=== PATIENT | female | born 1960 | race Caucasian/White ===

== ENCOUNTER → 2016-10-16 | Outpatient (CLI) | payer BC ==
--- NOTE | 2016-10-16 09:29 | BD ---
EXAMINATION TYPE: MG DEXA axial skeleton. DATE OF EXAM: 10/16/2016 COMPARISON: Previous study dated 02/21/2013. CLINICAL HISTORY: Postmenopausal female Height: 5 FT 2 1/2 IN Weight: 150 FRAX RISK QUESTIONS: Alcohol (3 or more units per day): NO Family History (Parent hip fracture): NO Glucocorticoids (More than 3mos): NO (Ex: prednisone, prednisolone, methylprednisolone, dexamethasone, and hydrocortisone). History of Fracture in Adulthood: YES Secondary Osteoporosis: 1. Type 1 Diabetes: NO 2. Hyperthyroidism: NO 3. Menopause before 45: YES 4. Malnutrition: NO 5. Chronic liver disease: NO Rheumatoid Arthritis: NO Current Tobacco Use: NO RISK FACTORS HISTORY OF: Hip Fracture (Right/Left): RT When: AGE 23 Active: YES Postmenopausal woman: TOTAL HYST AGE 34 Take estrogen and/or progesterone medications: TOOK HRT FOR 15 YEARS MEDICATIONS: Additional Medications: REINALDO GENERIC,VIT D3 ,MOTRIN NEEDED Additional History: WAS NEVER TREATED FOR HIP FX AT TIME OF INJURY. TWENTY YEARS AFTER THE INJURY WAS TOLD SHE FX RT HIP. EXAM MEASUREMENTS: Bone mineral densitometry was performed using the [employer] System. Bone mineral density as measured about the Lumbar spine is: ----- L1-L4(G/cm2): 1.169 T Score Values are as follows: ----- L2: -0.7 ----- L3: -0.1 ----- L4: 0.1 ----- L1-L4: -0.1 Bone mineral density has: Decreased -5.6% since study of: 2012 Bone mineral density about the R hip (g/cm2): 0.753 Bone mineral density about the L hip (g/cm2): 0.718 T Score values are as follows: -----R Neck: -1.2 -----L Neck: -1.5 -----R Total: 0.0 -----L Total: 0.1 Bone mineral density has: Decreased -12.5% since study of: 2012 IMPRESSION: Osteopenia (T Score between -2.5 and -1 as noted by T score values There is slightly increased risk of fracture and the patient may be considered for treatment. Re-Screen 2-5 years. NOTE: T-SCORE=SD OF THE YOUNG ADULT MEAN.
--- NOTE | 2016-10-16 09:41 | XR ---
EXAMINATION TYPE: XR chest 2V DATE OF EXAM: 10/16/2016 HISTORY: Z00.01 physical. REFERENCE: Previous study dated 07/16/2010. FINDINGS: The lungs are clear. Pleural spaces are clear. Heart size is normal. IMPRESSION: NORMAL CHEST.
[2016-10-16 10:12] LABS: CH 28.7; CHCM 32.7; HCT 41.5 % (34.0-46.0); HDW 2.48; HGB 13.5 gm/dL (11.4-16.0); MCH 28.6 pg (25.0-35.0); MCHC 32.5 g/dL (31.0-37.0); Mean Platelet Volume 7.1; RBC 4.72 m/uL (3.80-5.40); RDW 13.1 % (11.5-15.5)
[2016-10-16 10:14] LABS: ALT 35 U/L (9-52); AST 19 U/L (14-36); Alkaline Phosphatase 64 U/L (38-126); Anion Gap 10 mmol/L; Blood Urea Nitrogen 13 mg/dL (7-17); Calcium 9.5 mg/dL (8.4-10.2); Carbon Dioxide 25 mmol/L (22-30); Chloride 107 mmol/L (98-107); Cholesterol 216 mg/dL (<200); Glucose 109 mg/dL (74-99); HDL Cholesterol 50 mg/dL (40-60); Non-African American GFR(MDRD) >60 (>60 ml/min/1.73 sqM); Potassium 4.4 mmol/L (3.5-5.1); Sodium 142 mmol/L (137-145); Total Bilirubin 0.8 mg/dL (0.2-1.3); Total Protein 7.1 g/dL (6.3-8.2); Triglycerides 147 mg/dL (<150); Uric Acid 5.1 mg/dL (3.7-7.4)
[2016-10-16 12:08] LABS: Erythrocyte Sedimentation Rate 8 mm/hr (0-20)
[2016-10-16 12:45] LABS: Hemoglobin A1C 5.8 % (4.2-6.1)
[2016-10-16 13:43] LABS: Rheumatoid Factor, Qnt <9 IU/mL (<12)
[2016-10-16 16:22] LABS: ANA w/Reflex to Titer NEGATIVE (NEGATIVE)
--- NOTE | 2016-10-19 08:50 | MM ---
Reason for exam: screening (asymptomatic). Last mammogram was performed 1 year and 4 months ago. History: Patient is postmenopausal. Family history of breast cancer in sister at age 52. Took estrogen for 13 years beginning at age 34. Physical Findings: A clinical breast exam by your physician is recommended on an annual basis and results should be correlated with mammographic findings. MG Screening Mammo w CAD Bilateral CC and MLO view(s) were taken. Prior study comparison: June 12, 2015, bilateral MG screening mammo w CAD. May 25, 2014, bilateral MG screening mammo w CAD. There are scattered fibroglandular densities. Focal asymmetry seen on upper MLO view, stable. No significant changes when compared with prior studies. ASSESSMENT: Benign, BI-RAD 2 RECOMMENDATION: Routine screening mammogram of both breasts in 1 year.
== END | disposition home or self-care (01) ==
LOC: RADMAMWWP 08:17
PROVIDERS: ATTEND Family Medicine
DX: Z12.31 Encounter for screening mammogram for malignant neoplasm of breast (principal); M81.0 Age-related osteoporosis without current pathological fracture; Z13.820 Encounter for screening for osteoporosis; Z00.01 Encounter for general adult medical examination with abnormal findings; Z00.00 Encounter for general adult medical examination without abnormal findings; M10.9 Gout, unspecified
CPT/HCPCS: 84439; 80061; 80053; 85652; 83036; 84443; 84550; 85027; 86431; 86038; 86225; 71020; 77080; G0202

== ENCOUNTER → 2017-12-13 | Outpatient (CLI) | payer BC ==
[2017-12-13 08:55] LABS: Appearance,Urine Cloudy (Clear); Bilirubin,Urine Negative (Negative); Blood,Urine Negative (Negative); Color,Urine Yellow; Glucose,Urine (UA) Negative (Negative); Hyaline Casts,Urine 3 /lpf (0-2); Ketones,Urine Negative (Negative); Leukocyte Esterase,Urine Negative (Negative); Mucus,Urine Rare /hpf; Nitrite,Urine Negative (Negative); Protein,Urine Negative (Negative); RBC,Urine <1 /hpf (0-5); Specific Gravity,Urine 1.019 (1.001-1.035); Squamous Epithelial Cell,Urine 12 /hpf (0-4); Urobilinogen,Urine <2.0 mg/dL (<2.0); WBC,Urine 2 /hpf (0-5)
[2017-12-13 08:57] LABS: ALT 33 U/L (9-52); AST 20 U/L (14-36); Albumin 4.2 g/dL (3.5-5.0); Alkaline Phosphatase 67 U/L (38-126); Anion Gap 9 mmol/L; Blood Urea Nitrogen 15 mg/dL (7-17); Calcium 10.2 mg/dL (8.4-10.2); Carbon Dioxide 25 mmol/L (22-30); Chloride 107 mmol/L (98-107); Cholesterol 238 mg/dL (<200); Glucose 111 mg/dL (74-99); HDL Cholesterol 47 mg/dL (40-60); LDL Cholesterol,Calculated 159 mg/dL (0-99); Potassium 4.7 mmol/L (3.5-5.1); Sodium 141 mmol/L (137-145); Total Bilirubin 0.6 mg/dL (0.2-1.3); Triglycerides 161 mg/dL (<150)
[2017-12-13 09:11] LABS: Basophils # (A) 0.1 k/uL (0-0.2); Basophils % (A) 1 %; Eosinophils # (A) 0.2 k/uL (0-0.7); Eosinophils % (A) 2 %; HCT 42.2 % (34.0-46.0); HGB 13.9 gm/dL (11.4-16.0); Lymphocytes # (A) 2.7 k/uL (1.0-4.8); Lymphocytes % (A) 33 %; MCH 27.7 pg (25.0-35.0); MCHC 32.8 g/dL (31.0-37.0); MCV 84.3 fL (80.0-100.0); Monocytes # (A) 0.3 k/uL (0-1.0); Monocytes % (A) 4 %; Neutrophils # (A) 4.8 k/uL (1.3-7.7); Neutrophils % (A) 59 %; Platelet Count 342 k/uL (150-450); RBC 5.01 m/uL (3.80-5.40); RDW 13.2 % (11.5-15.5); T4, Free (Free Thyroxine) 0.85 ng/dL (0.78-2.19); WBC 8.2 k/uL (3.8-10.6)
[2017-12-13 18:16] LABS: Hemoglobin A1C 5.9 % (4.0-6.0)
--- NOTE | 2017-12-14 09:08 | MM ---
Reason for exam: screening (asymptomatic). Last mammogram was performed 1 year and 2 months ago. History: Patient is postmenopausal. Family history of breast cancer in sister at age 52. Took estrogen for 13 years beginning at age 34. Physical Findings: A clinical breast exam by your physician is recommended on an annual basis and results should be correlated with mammographic findings. MG Screening Mammo w CAD Bilateral CC and MLO view(s) were taken. Prior study comparison: October 16, 2016, bilateral MG screening mammo w CAD. June 12, 2015, bilateral MG screening mammo w CAD. There are scattered fibroglandular densities. No significant changes when compared with prior studies. ASSESSMENT: Negative, BI-RAD 1 RECOMMENDATION: Routine screening mammogram of both breasts in 1 year.
== END | disposition home or self-care (01) ==
LOC: RADMAMWWP 07:22
PROVIDERS: ATTEND Family Medicine
DX: Z12.31 Encounter for screening mammogram for malignant neoplasm of breast (principal); M79.671 Pain in right foot; R53.83 Other fatigue; Z80.3 Family history of malignant neoplasm of breast
CPT/HCPCS: 36415; 77067; 80053; 80061; 81001; 83036; 84439; 84443; 85025

== ENCOUNTER → 2019-12-05 | Outpatient (CLI) | payer BC | END | disposition home or self-care (01) | LOC: LABWHC1 15:01 | PROVIDERS: ATTEND Family Medicine | DX: R50.9 Fever, unspecified (principal); J02.9 Acute pharyngitis, unspecified | CPT/HCPCS: U0003; C9803 ==

== ENCOUNTER → 2020-04-12 | Outpatient (CLI) | payer BC ==
--- NOTE | 2020-04-12 12:03 | ECHOF ---
Referral Reason:R07.9 Left sided chest pain MEASUREMENTS -------- HEIGHT: 157.5 cm WEIGHT: 66.7 kg BP: RVIDd: 3.5 cm (< 3.3) IVSd: 1.5 cm (0.6 - 1.1) LVIDd: 2.7 cm (3.9 - 5.3) LVPWd: 1.6 cm (0.6 - 1.1) IVSs: 1.7 cm LVIDs: 1.7 cm LVPWs: 1.9 cm LAESV Index (A-L): 17.45 ml/m Ao Diam: 2.9 cm (2.0 - 3.7) AV Cusp: 2.1 cm (1.5 - 2.6) MV EXCURSION: 10.090 mm (> 18.000) MV EF SLOPE: 41 mm/s (70 - 150) EPSS: 0.2 cm MV E Zhang: 0.67 m/s MV DecT: 114 ms MV A Zhang: 0.82 m/s MV E/A Ratio: 0.82 RAP: 5.00 mmHg RVSP: 22.88 mmHg FINDINGS -------- Sinus rhythm. This was a technically adequate study. The left ventricular size is normal. There is moderate concentric left ventricular hypertrophy. O verall left ventricular systolic function is normal with, an EF between 55 - 60 %. The diastolic fi lling pattern is normal for the age of the patient 15.74. The right ventricle is mildly enlarged. Normal LA size by volume 22+/-6 ml/m2. The right atrial size is normal. Interatrial and interventricular septum intact. The aortic valve is trileaflet, and appears structurally normal. No aortic stenosis or regurgitation. The mitral valve is normal. There is trace to mild mitral regurgitation. The tricuspid valve appears structurally normal. Mild tricuspid regurgitation present. Right vent ricular systolic pressure is normal at < 35 mmHg. The right ventricular systolic pressure, as measu red by Doppler, is 22.88mmHg. There is no pulmonic regurgitation present. The aortic root size is normal. Normal inferior vena cava with normal inspiratory collapse consistent with estimated right atrial pre ssure of 5 mmHg. There is no pericardial effusion. CONCLUSIONS -------- 1. There is moderate concentric left ventricular hypertrophy. 2. Overall left ventricular systolic function is normal with, an EF between 55 - 60 %. 3. The diastolic filling pattern is normal for the age of the patient 15.74 4. The right ventricle is mildly enlarged. 5. The aortic valve is trileaflet, and appears structurally normal. No aortic stenosis or regurgitati on. 6. There is trace to mild mitral regurgitation. 7. Mild tricuspid regurgitation present. ASSET ACCOUNTANT: Khushboo Allen RDCS
--- NOTE | 2020-04-12 13:05 | EST ---
EXERCISE STRESS AGE: 59 SEX: F HT: 5'2" WT: 324 lbs. PROTOCOL: Ez STAGE: 2 DURATION OF EXERCISE: 6:00 HEART RATE REST: 95 BLOOD PRESSURE REST: 123/82 MAXIMUM HEART RATE ACHIEVED: 145 MAXIMUM BLOOD PRESSURE: 185/90 85% MPHR: 136 100% MPHR: 160 METS: 7.3 INDICATIONS: Chest pain. CLINICAL INFORMATION: Baseline rhythm is a sinus mechanism, rate of 95, normal axis and in intervals, poor R- wave progression, minor nonspecific ST-T wave changes. Baseline blood pressure 123/82 mmHg. The patient exercised on Ez protocol for 6 minutes reaching peak rate 145 beats per minute which is equal to 90% maximum predicted heart rate. Peak blood pressure 163/63 mmHg. Test was terminated due to fatigue. There was no chest pain. Electrocardiograph monitoring revealed a half a mm ST-segment depression. RESULTS: 1. Average exercise tolerance. 2. Nondiagnostic electrocardiograph stress testing with 0.[address]-segment depression secondary to baseline EKG abnormality, if clinically indicated, an imaging stress test will be helpful. MMODL / IJN: [id number] /
== END | disposition home or self-care (01) ==
LOC: RADNMMAIN 10:41
PROVIDERS: ATTEND Family Medicine
DX: I08.1 Rheumatic disorders of both mitral and tricuspid valves (principal); R94.31 Abnormal electrocardiogram [ECG] [EKG]; Z88.0 Allergy status to penicillin; Z88.1 Allergy status to other antibiotic agents
CPT/HCPCS: 93017; 93306

== ENCOUNTER → 2020-05-17 | Outpatient (CLI) | payer BC ==
--- NOTE | 2020-05-17 12:17 | MM ---
Reason for exam: screening (asymptomatic). Last mammogram was performed 2 years and 5 months ago. History: Patient is postmenopausal. Family history of breast cancer in sister at age 52 and breast cancer in sister at age 62. Took hormonal contraceptives for 17 years beginning at age 17. Took estrogen for 14 years beginning at age 34. Physical Findings: A clinical breast exam by your physician is recommended on an annual basis and results should be correlated with mammographic findings. MG 3D Screening Mammo W/Cad Bilateral CC and MLO view(s) were taken. Prior study comparison: December 13, 2017, bilateral MG screening mammo w CAD. October 16, 2016, bilateral MG screening mammo w CAD. There are scattered fibroglandular densities. There are benign appearing round, regional calcifications bilaterally. Asymmetric breast tissue left upper quadrant, stable. There is no discrete abnormality. ASSESSMENT: Benign, BI-RAD 2 RECOMMENDATION: Routine screening mammogram of both breasts in 1 year.
== END | disposition home or self-care (01) ==
LOC: RADMAMWWP 07:20
PROVIDERS: ATTEND Family Medicine
DX: Z12.31 Encounter for screening mammogram for malignant neoplasm of breast (principal); Z80.3 Family history of malignant neoplasm of breast
CPT/HCPCS: 77063; 77067

== ENCOUNTER 2021-10-02 06:29 | Day surgery (SDC) | payer BC ==
[2021-10-01 08:46] VITALS: BMI 27.8
[2021-10-02] MEDS ORDERED: LACTATED RINGERS 1,000 ML IV SCH (06:47)
[2021-10-02 06:57] VITALS: TEMP 97.1
[2021-10-02] MEDS ORDERED: PROPOFOL 10 MG/ML 20 ML VIAL IV ONE (07:24)
--- NOTE | 2021-10-02 07:38 | P.PCN ---
Date of Procedure: 10/02/21 Procedure(s) Performed: BRIEF HISTORY: Patient is a 61-year-old pleasant white female scheduled for an elective colonoscopy as a part of screening for colorectal neoplasia. Her last colonoscopy was 11 years PROCEDURE PERFORMED: Colonoscopy. PREOPERATIVE DIAGNOSIS: Screening for colon cancer. IV sedation per Anesthesia. PROCEDURE: After informed consent was obtained, the patient, was brought into the endoscopy unit. IV sedation was administered by Anesthesia under continuous monitoring. Digital rectal examination was normal. Initially the Olympus CF-160 flexible video colonoscope was then inserted in the rectum, gradually advanced into the cecum without any difficulty. Careful examination was performed as the scope was gradually being withdrawn. Ileocecal valve and the appendiceal orifice were visualized and appeared normal. Prep was excellent. Mucosa of the cecum, ascending colon, transverse colon, descending colon, sigmoid colon, and rectum appeared normal. Retroflexion was performed in the rectum and no lesions were seen. The patient tolerated the procedure well. IMPRESSION: Normal-appearing colon from rectum to cecum with no evidence of colorectal neoplasia. RECOMMENDATIONS: Findings of this examination were discussed with the patient as well as her family. He was advised to have a repeat screening colonoscopy in 10 years..
[2021-10-02 07:43] VITALS: PULSE 84
[2021-10-02 07:57] VITALS: BP 145/73; RESP 16
== END 2021-10-02 08:12 | disposition home or self-care (01) ==
LOC: ORWHC2ENDO 06:29
PROVIDERS: ATTEND Internal Medicine Gastroenterology
DX: Z12.11 Encounter for screening for malignant neoplasm of colon (principal)
CPT/HCPCS: 45378; J2704

== ENCOUNTER → 2023-07-09 | Outpatient (CLI) | payer BC ==
--- NOTE | 2023-07-09 14:50 | MM ---
Reason for Exam: Screening (asymptomatic). Last mammogram was performed 1 year(s) and 1 month(s) ago. Patient History: Menarche at age 13. First Full-Term at age 17. Left ovary removed at age 34. Right ovary removed at age 34. Hysterectomy at age 34. Postmenopausal. Patient has history of breast feeding. Estrogen for 14 years from age 34 until age 47. Hormonal Contraceptives for 17 years from age 17 until age 34. Maternal aunt had ovarian cancer. Sister had breast cancer, age 52. Sister had breast cancer, age 62. Risk Values: Goldie 5 year model risk: 6.8%. NCI Lifetime model risk: 26.1%. Prior Study Comparison: 05/17/2020 Bilateral Screening Mammogram, [facility]. 05/27/2021 Bilateral Screening Mammogram, [facility]. 06/22/2022 Bilateral MG 3D screening mammo w/cad, [facility]. Tissue Density: There are scattered fibroglandular densities. Findings: Analyzed By CAD. The pattern is symmetrical. Scattered round calcifications are present bilaterally. No suspicious groups of microcalcifications, spiculated or lobular masses, architectural distortion or other secondary signs of malignancy are mammographically apparent. Overall Assessment: Benign, BI-RAD 2 Management: Screening Mammogram of both breasts in 1 year. A negative mammogram report should not preclude additional follow up of suspicious palpable abnormalities. Patient should continue monthly self breast exam. A clinical breast exam by your physician is recommended on an annual basis and results should be correlated with mammographic findings. Electronically signed and approved by: Bennett Irizarry D.O. Radiologis
== END | disposition home or self-care (01) ==
LOC: RADMAMWWP 10:21
PROVIDERS: ATTEND Family Medicine
DX: Z12.31 Encounter for screening mammogram for malignant neoplasm of breast (principal); Z78.0 Asymptomatic menopausal state; Z80.3 Family history of malignant neoplasm of breast
CPT/HCPCS: 77063; 77067

== ENCOUNTER → 2023-08-09 | Outpatient (CLI) | payer BC ==
--- NOTE | 2023-08-09 09:54 | XR ---
EXAMINATION TYPE: XR chest 2V DATE OF EXAM: 08/09/2023 9:48 AM CLINICAL INDICATION:Female, 62 years old with history of Z00.00 general medical exam; [facility] COMPARISON: Chest radiographs from 10/16/2016. TECHNIQUE: XR chest 2V Frontal and lateral views of the chest. FINDINGS: Lungs/Pleura: There is no evidence of pleural effusion, focal consolidation, or pneumothorax. Pulmonary vascularity: Unremarkable. Heart/mediastinum: Cardiomediastinal silhouette is unremarkable. Musculoskeletal: No acute osseous pathology. IMPRESSION: No acute cardiopulmonary disease/process.
--- NOTE | 2023-08-11 17:57 | BD ---
EXAMINATION TYPE: Axial Bone Density DATE OF EXAM: 08/09/2023 CLINICAL HISTORY: 62 years old Female. ICD-10 CODE: M81.0 AGE-RELATED OSTEOPOROSIS W/O CURRENT PATHO LO Height: 61 Weight: 155.6 FRAX RISK QUESTIONS: Alcohol (3 or more units per day): no Family History (Parent hip fracture): no Glucocorticoids (More than 3mos): no History of Fracture in Adulthood: hip 1983 Secondary Osteoporosis: 1. Type 1 Diabetes: no 2. Hyperthyroidism: no 3. Menopause before 45: yes Hysterectomy age 34 4. Malnutrition: no 5. Chronic liver disease: no Rheumatoid Arthritis: no Current Tobacco Use: no RISK FACTORS HISTORY OF: Hip Fracture (Right/Left): rt hip 1983 Spine Fracture: no History of Wrist Fracture: no Surgery to Spine/Hip(right/left)/Wrist (right/left): no MEDICATIONS: Thyroid Medications: no Osteoporosis Medications: no EXAM MEASUREMENTS: Bone mineral densitometry was performed using the [employer] System. Bone mineral density as measured about the Lumbar spine is: ----- L1-L4(G/cm2): 1.104 T Score Values are as follows: ----- L1: -1.1 ----- L2: -0.6 ----- L3: -0.7 ----- L4: -0.4 ----- L1-L4: -0.6 Z Score Values are as follows: ----- L1: 0.2 ----- L2: 0.8 ----- L3: 0.6 ----- L4: 1.0 ----- L1-L4: 0.7 Bone mineral density has: decreased -5.6 % since study of: 10/16/2016 Bone mineral density about the R hip (g/cm2): 0.894 Bone mineral density about the L hip (g/cm2): 0.943 T Score values are as follows: -----R Neck: -1.1 -----L Neck: -1.7 -----R Total: -0.9 -----L Total: -0.5 Z Score values are as follows: -----R Neck: 0.2 -----L Neck: -0.4 -----R Total: 0.1 -----L Total: 0.5 Bone mineral density has: decreased -9.8 % since study of: 10/16/2016 FRAX%s: The graph provided illustrates a 15.2 % chance for a major osteoporotic fx and a 1.7% chance for the hips probability for fx in 10 years time. IMPRESSION: Osteopenia (T Score between -2.5 and -1). There is slightly increased risk of fracture and the patient may be considered for treatment. Re-Screen 2-5 years. NOTE: T-SCORE=SD OF THE YOUNG ADULT MEAN.
== END | disposition home or self-care (01) ==
LOC: RADBDWWP 09:14
PROVIDERS: ATTEND Family Medicine
DX: Z00.00 Encounter for general adult medical examination without abnormal findings (principal); M85.89 Other specified disorders of bone density and structure, multiple sites; M81.0 Age-related osteoporosis without current pathological fracture; Z78.0 Asymptomatic menopausal state
CPT/HCPCS: 71046; 77080

== ENCOUNTER → 2024-07-21 | Outpatient (CLI) | payer BC ==
--- NOTE | 2024-07-21 11:41 | MM ---
Reason for Exam: Screening (asymptomatic). Last screening mammogram was performed 12 month(s) ago. Patient History: Menarche at age 13. First Full-Term at age 17. Left ovary removed at age 34. Right ovary removed at age 34. Hysterectomy at age 34. Postmenopausal. Patient has history of breast feeding. Estrogen for 14 years from age 34 until age 47. Hormonal Contraceptives for 17 years from age 17 until age 34. Maternal aunt had ovarian cancer. Sister had breast cancer, age 52. Sister had breast cancer, age 62. Risk Values: Goldie 5 year model risk: 7.0%. NCI Lifetime model risk: 25.3%. Prior Study Comparison: 05/27/2021 Bilateral Screening Mammogram, [facility]. 06/22/2022 Bilateral MG 3D screening mammo w/cad, [facility]. 07/09/2023 Bilateral MG 3D screening mammo w/cad, [facility]. Tissue Density: The breasts are heterogeneously dense, which may obscure small masses. Findings: Analyzed By CAD. There is no suspicious group of microcalcifications or new suspicious mass in either breast. Overall Assessment: Negative, BI-RAD 1 Management: Screening Mammogram of both breasts in 1 year. . Patient should continue monthly self-breast exams. A clinical breast exam by your physician is recommended on an annual basis. This exam should not preclude additional follow-up of suspicious palpable abnormalities. Note on Goldie scores and lifetime risk: 1. A Goldie score greater than 3% is considered moderate risk. If this is the case, consider specialist referral to assess eligibility for a risk reducing agent. 2. If overall lifetime risk for the development of breast cancer is 20% or higher, the patient may qualify for future screening with alternating mammogram and breast MRI. [facility], , 07/21/2024 11:38 AM. Electronically signed and approved by: Cody Gamez M.D. Radiologis
== END | disposition home or self-care (01) ==
LOC: RADMAMWWP 09:01
PROVIDERS: ATTEND Family Medicine
DX: Z12.31 Encounter for screening mammogram for malignant neoplasm of breast (principal); R92.333 Mammographic heterogeneous density, bilateral breasts; Z80.3 Family history of malignant neoplasm of breast; Z78.0 Asymptomatic menopausal state
CPT/HCPCS: 77063; 77067